=== PATIENT | female | born 1990 | race Caucasian/White ===

== ENCOUNTER 2018-12-20 13:15 | Emergency (ER) | payer OTHER ==
[~2018-12-20] VITALS: Ht 162.6 cm; Wt 60.8 kg
[2018-12-20] MEDS ORDERED: MINOCYCLINE HC100 MG (13:59)
== END 2018-12-20 19:09 | disposition home or self-care (01) ==
LOC: ER 13:15
DX: R42 Dizziness and giddiness (principal)

== ENCOUNTER → 2018-12-26 | Emergency (ER) | payer OTHER ==
[~2018-12-26] VITALS: Ht 162.6 cm; Wt 60.8 kg
[~2018-12-26] MED LIST: DUI500 PO; FLUCONAZOLE150 MG PO; MINOCYCLINE HC100 MG; XANAX0.25 MG PO
== END | disposition home or self-care (01) ==
LOC: ER 20:34
DX: R30.0 Dysuria (principal); N39.0 Urinary tract infection, site not specified; F41.0 Panic disorder [episodic paroxysmal anxiety]

== ENCOUNTER 2019-05-01 20:48 | Emergency (ER) | payer OTHER ==
[~2019-05-01] VITALS: Ht 167.6 cm; Wt 61.2 kg
== END 2019-05-01 23:21 | disposition home or self-care (01) ==
LOC: ER 20:48
DX: B34.9 Viral infection, unspecified (principal)

== ENCOUNTER 2019-05-10 13:58 | Emergency (ER) | payer OTHER ==
[~2019-05-10] VITALS: Ht 162.6 cm; Wt 62.6 kg
== END 2019-05-10 21:58 | disposition home or self-care (01) ==
LOC: ER 13:58
DX: J31.2 Chronic pharyngitis (principal)

== ENCOUNTER 2022-10-17 12:53 | Emergency (ER) | payer OTHER ==
[~2022-10-17] VITALS: Ht 162.6 cm; Wt 73.5 kg
[2022-10-17] MEDS ORDERED: ALLERGY RELIEF10 M3 PO (18:01)
[2022-10-17] MEDS ORDERED: AMOX-CLAV 875-1 EACH PO (18:01)
[2022-10-17] MEDS ORDERED: TOPROL XL50 M1 PO (18:06)
== END 2022-10-17 18:06 | disposition home or self-care (01) ==
LOC: ER 12:53
DX: J06.9 Acute upper respiratory infection, unspecified (principal); Z20.822 Contact with and (suspected) exposure to COVID-19; Z88.2 Allergy status to sulfonamides; Z91.013 Allergy to seafood

== ENCOUNTER 2023-01-08 14:51 | Emergency (ER) | payer OTHER ==
[~2023-01-08] VITALS: Ht 162.6 cm; Wt 76.7 kg
[~2023-01-08 14:51] MED LIST changes: +ALLERGY RELIEF10 M3 PO; +AMOX-CLAV 875-1 EACH PO; +TOPROL XL50 M1 PO
[2023-01-08] MEDS ORDERED: TUSNEL LIQUID178 ML PO (18:31)
[2023-01-08] MEDS ORDERED: DOLOGEN CAPLET1 EACH PO (18:31)
[2023-01-08] MEDS ORDERED: ZITHROMAX500 MG PO (18:32)
== END 2023-01-08 18:57 | disposition home or self-care (01) ==
LOC: ER 14:51
DX: B34.9 Viral infection, unspecified (principal); Z88.2 Allergy status to sulfonamides; Z91.013 Allergy to seafood; Z20.822 Contact with and (suspected) exposure to COVID-19